=== PATIENT | male | born 1990 | race African-American/Black ===

== ENCOUNTER 2019-01-05 22:25 | Emergency (ER) | payer OTHER | END 2019-01-06 01:54 | disposition home or self-care (01) | LOC: JER 22:25 ==

== ENCOUNTER 2019-03-18 21:04 | Emergency (ER) | payer OTHER ==
[2019-03-18 21:38] VITALS: BP 132/91; PULSE 68; TEMP 98; BMI 23.0
[2019-03-18] MEDS ORDERED: AZITHROMYCIN 500 MG TABLET PO ONE (22:13)
--- NOTE | 2019-03-18 22:18 | PDOC ---
History of Present Illness - General Chief Complaint: Head/Neck problem Stated Complaint: FEELING SICK Time Seen by Provider: 03/18/19 21:50 History Source: Patient Exam Limitations: Clinical Condition - History of Present Illness Initial Comments: 03/18/19 22:38 Patient with no significant past medical history present with complaint of whole -body itching and tingling sensation after having unprotected sex with a girl 2 days ago. Patient reported he did labs itching all over the body of the time he has sex with this particular girl which resolves after few days. Patient is concerned he might have STD. Denies any penile discharge, pain or any other symptoms Timing/Duration: other (2 days) Past History - Past Medical History Allergies/Adverse Reactions: Allergies Allergy/AdvReac Type Severity Reaction Status Date / Time No Known Allergies Allergy Verified 01/05/19 22:40 Asthma: No Cancer: No Cardiac Disorders: No CVA: No COPD: No CHF: No - Suicide/Smoking/Psychosocial Hx Smoking History: Former smoker Have you smoked in the past 12 months: No Information on smoking cessation initiated: No Hx Alcohol Use: No Drug/Substance Use Hx: No Review of Systems - Review of Systems Able to Perform ROS?: Yes Is the patient limited Syriac proficient: No Constitutional: No: Weakness HEENTM: No: Symptoms Reported Respiratory: No: Symptoms reported Cardiac (ROS): No: Symptoms Reported ABD/GI: No: Symptoms Reported : No: Symptoms Reported Musculoskeletal: No: Symptoms Reported Integumentary: Yes: Symptoms Reported, See HPI, Pruritus Neurological: Yes: Symptoms reported, See HPI, Tingling. No: Numbness, Paresthesia, Dizziness All Other Systems: Reviewed and Negative *Physical Exam - Vital Signs Last Vital Signs Temp Pulse Resp BP Pulse Ox 98 F 68 20 132/91 100 03/18/19 21:33 03/18/19 21:33 03/18/19 21:33 03/18/19 21:33 03/18/19 21:33 - Physical Exam General Appearance: Yes: Nourished, Appropriately Dressed. No: Apparent Distress HEENT: positive: Normal ENT Inspection Neck: positive: Supple Respiratory/Chest: positive: Lungs Clear, Normal Breath Sounds. negative: Respiratory Distress, Accessory Muscle Use Cardiovascular: positive: Regular Rhythm, Regular Rate Male Genitalia: positive: normal genitalia Musculoskeletal: positive: Normal Inspection Extremity: positive: Normal Capillary Refill, Normal Inspection Integumentary: positive: Normal Color Neurologic: positive: Fully Oriented, Alert, Normal Response Medical Decision Making - Medical Decision Making 03/18/19 22:40 Patient with no significant past medical history present with complaint of whole -body itching and tingling sensation after having unprotected sex with a girl 2 days ago. Patient reported he did labs itching all over the body of the time he has sex with this particular girl which resolves after few days. Patient is concerned he might have STD. Denies any penile discharge, pain or any other symptoms Exam unremarkable with no penile discharge pain or rashes. Normal neuro exam. Lungs clear to auscultation bilateral and normal cardio exam. Symptoms likely anxiety from having unprotected sex versus ALLERGIC reaction to the female partner. Urine culture ordered. Urine GC and chlamydia tests ordered. Ceftriaxone 250 mg IM and azithromycin 1 g by mouth given for STI prophylaxis. Patient is stable for discharge with PCP follow-up *DC/Admit/Observation/Transfer Diagnosis at time of Disposition: Malaise, Concern about STD in male without diagnosis - Discharge Dispostion Disposition: HOME Condition at time of disposition: Stable Decision to Admit order: No - Referrals - Patient Instructions Printed Discharge Instructions: How to Detect and Treat STDs Additional Instructions: You will be contacted with urine lab results if it positive for bacteria - Post Discharge Activity
[2019-03-18] MEDS ORDERED: AZITHROMYCIN 250 MG TABLET ONE (22:26)
== END 2019-03-18 22:40 | disposition home or self-care (01) ==
LOC: JERFT 21:04
DX: R53.81 Other malaise (principal); Z11.3 Encounter for screening for infections with a predominantly sexual mode of transmission; Z87.891 Personal history of nicotine dependence
CPT/HCPCS: 36415; 87086; 87491; 87591; 99281-25

== ENCOUNTER 2019-04-28 10:23 | Emergency (ER) | payer OTHER ==
[2019-04-28 10:29] VITALS: BP 121/63; PULSE 70; TEMP 98.5; BMI 23.7
--- NOTE | 2019-04-28 10:49 | PDOC ---
History of Present Illness - General Chief Complaint: Lightheaded Stated Complaint: UNBALANCED Time Seen by Provider: 04/28/19 10:45 History Source: Patient Exam Limitations: No Limitations - History of Present Illness Initial Comments: 28 year old male with no PMH presented to ED for STI testing/treatment. Pt reported x1.5 weeks ago he had unprotected sex with a partner he has had sex with in the past, and he is worried he may have an STD because since then he has been feeling generalized weakness/all over body shakes. Pt reported the last time he had sex with her he had similar symptoms, and he was seen at [facility] ED. Pt denied penile pain, penile discharge, testicular pain, abdominal pain, nausea, vomiting, fever. ROS General: admitted to generalized weakness. denied fever, chills. HEENT: denied sore throat, rhinorrhea, ear pain. Cardiovascular: denied chest pain, palpitations, syncope, diaphoresis. Respiratory: denied shortness of breath, cough, sputum production, hemoptysis. Gastrointestinal: denied abdominal pain, nausea, vomiting, diarrhea, constipation, blood in stool. Genitourinary: denied penile pain, penile discharge, testiculr pain, dysuria, increased urinary frequency, hematuria, urinary incontinence, flank pain. Back: denied back pain. Musculoskeletal: denied joint pain, muscle pain, joint swelling. Neurological: admitted to shaking. denied headache, dizziness, numbness, tingling, weakness. Integumentary: denied rash, laceration, abrasion. Hematologic/Lymphatic: denied bruising or bleeding. PE Constitutional: Well-nourished, Well-developed, appearing stated age. HEENT: head is normocephalic, atraumatic. EOMI. PERRLA. no posterior pharyngeal erythema.no tonsillar swelling or exudates bilaterally. uvula midline. no peritonsillar swelling, tenderness or abscess. no jaw tenderness or misalignment. Neck: supple. Full ROM. Cardiovascular: regular heart rhythm. no murmurs. no pericardial friction rub. Respiratory: clear to auscultation bilaterally. no crackles, rhonchi or wheezing. no stridor. Gastrointestinal: soft, nontender. normal bowel sounds. no rebound, guarding, masses. Extremities: peripheral pulses intact. no lower extremity edema. Neurological: CN 2-12 grossly intact. moves all four extremities. no tremor noted. Psych: awake, alert, oriented x3. follows commands. answers questions appropriately. Past History - Past Medical History Allergies/Adverse Reactions: Allergies Allergy/AdvReac Type Severity Reaction Status Date / Time No Known Allergies Allergy Verified 04/28/19 10:29 Home Medications: Ambulatory Orders NK [No Known Home Medication] 04/28/19 Asthma: No Cancer: No Cardiac Disorders: No CVA: No COPD: No CHF: No - Suicide/Smoking/Psychosocial Hx Smoking History: Never smoked Have you smoked in the past 12 months: No Hx Alcohol Use: No Drug/Substance Use Hx: No *Physical Exam - Vital Signs Last Vital Signs Temp Pulse Resp BP Pulse Ox 98.5 F 70 14 121/63 99 04/28/19 10:26 04/28/19 10:04/28/19 10:04/28/19 10:04/28/19 10:26 Medical Decision Making - Medical Decision Making 28 year old male with above PMH presented to ED for STI testing/treatment, c/o all over body shakes and weakness. Pt refused HIV/Hepatitis/Syphilis testing. Initial Vital Signs Temp Pulse Resp BP Pulse Ox 98.5 F 70 14 121/63 99 04/28/19 10:26 04/28/19 10:04/28/19 10:04/28/19 10:04/28/19 10:26 Afebrile. No tachycardia. No tachypnea. No hypotension. No hypoxia on room air. Labs ordered: GC/Chalmydia amplification Medications ordered: Azithromycin 1000 mg PO once, Ceftriaxone 250 mg IM once Imaging ordered: none Active Orders 24 hr Category Date Time Status CHLAMYDIA/GC AMPLIFICATION Stat Lab 04/28/19 11:00 Received Pt counseled on safe sex practices, expectant management, advised to be abstinent x7 days after Abx treatment, advised to have partner(s) medically evaluated. 04/28/19 12:13 Pt unable to be found in department. Pt awaiting Attending physician evaluation. 04/28/19 12:23 Pt found to be sitting outside. Attending now evaluating pt. 04/28/19 12:25 Pt stable for discharge. *DC/Admit/Observation/Transfer Diagnosis at time of Disposition: Concern about STD in male without diagnosis - Discharge Dispostion Disposition: HOME Condition at time of disposition: Stable Decision to Admit order: No - Referrals Referrals: Michael Mejía MD [Staff Physician] - Oh Snow MD [Staff Physician] - - Patient Instructions Printed Discharge Instructions: How to Use a Condom, Facts About Sexually Transmitted Infections Additional Instructions: Follow up with your primary care doctor within 3 days. Your care is not complete until you follow up. I have provided you with a referral for our clinic system. DO NOT HAVE SEX for 7 days after your treatment. Please have your sexual partners medically evaluated and treated. Do not have sex with any partners who have not been treated. Return to the Emergency Department for increasing pain, chest pain, shortness of breath, vomiting, fever>103F, fever>5 days, discharge from penis, penile pain , testicular pain, or any other new, worsening or concerning symptoms. - Post Discharge Activity Forms/Work/School Notes: Back to Work
[2019-04-28] MEDS ORDERED: AZITHROMYCIN 500 MG TABLET PO ONE (10:57)
[2019-04-28] MEDS ORDERED: AZITHROMYCIN 250 MG TABLET ONE (11:10)
[2019-04-28] MEDS ORDERED: cefTRIAXone SODIUM 1 GM VIAL ONE (11:10)
[2019-04-28] MEDS ORDERED: LIDOCAINE HCL 1%, 10 MG/ML (20ML VIAL) ONE (11:10)
--- NOTE | 2019-04-28 12:47 | PDOC ---
Attending Attestation - Resident Resident Name: Yaakov Wynnea - ED Attending Attestation I have performed the following: I have examined & evaluated the patient, The case was reviewed & discussed with the resident, I agree w/resident's findings & plan, Exceptions are as noted - HPI HPI: 04/28/19 12:45 28 yo M here with concerns for STD. pt states he has a sexual partner that he is concerned gave him an STD. denies dysuria, no f/c no weight loss. no penile discharge. no abd or flank pain. c/o generalized weakness and shaking. he has been seen for STD check for same in the past. no cp no sob no other complaints. - Physicial Exam PE: 04/28/19 12:46 awake alert lungs clear bilat heart rrr no mrg abd soft nt nd ext wwp. flank nt from. ext wwp no edema.skin warm and dry no rash. - Medical Decision Making 04/28/19 12:[age] yo male here for std check. will offer phrophylactic treatment. cultures sent. dc home. janneth rivera given to pt.
== END 2019-04-28 12:35 | disposition home or self-care (01) ==
LOC: JER 10:23
DX: Z11.3 Encounter for screening for infections with a predominantly sexual mode of transmission (principal)
CPT/HCPCS: 36415; 87491; 87591; 96372; 99282-25

== ENCOUNTER 2019-05-06 08:13 | Emergency (ER) | payer OTHER ==
[2019-05-06 08:31] VITALS: BP 144/88; PULSE 63; TEMP 98.2; BMI 23.0
--- NOTE | 2019-05-06 09:00 | PDOC ---
History of Present Illness - General Chief Complaint: Penile Drainage Stated Complaint: PERSONAL Time Seen by Provider: 05/06/19 08:38 History Source: Patient Exam Limitations: No Limitations Past History - Travel Traveled outside of the country in the last 30 days: No Close contact w/someone who was outside of country & ill: No - Past Medical History Allergies/Adverse Reactions: Allergies Allergy/AdvReac Type Severity Reaction Status Date / Time No Known Allergies Allergy Verified 05/06/19 08:31 Home Medications: Ambulatory Orders NK [No Known Home Medication] 04/28/19 Asthma: No Cancer: No Cardiac Disorders: No CVA: No COPD: No CHF: No - Psycho Social/Smoking Cessation Hx Smoking History: Never smoked Have you smoked in the past 12 months: No Hx Alcohol Use: No Drug/Substance Use Hx: No Review of Systems - Review of Systems Able to Perform ROS?: Yes Comments:: 05/06/19 08:49 CONSTITUTIONAL: Absent: fever, chills, diaphoresis, generalized weakness, malaise, loss of appetite HEENT: Absent: rhinorrhea, nasal congestion, throat pain, throat swelling, difficulty swallowing, mouth swelling, ear pain, eye pain, visual Changes CARDIOVASCULAR: Absent: chest pain, loss of consciousness, palpitations, irregular heart rate, peripheral edema RESPIRATORY: Absent: cough, shortness of breath, dyspnea with exertion, orthopnea, wheezing, stridor, hemoptysis GASTROINTESTINAL: Absent: abdominal pain, abdominal distension, nausea, vomiting, diarrhea, constipation, melena, hematochezia GENITOURINARY: Present: tingling to tip of penis Absent: dysuria, frequency, urgency, hesitancy , hematuria, flank pain, genital pain MUSCULOSKELETAL: Absent: myalgia, arthralgia, joint swelling SKIN: Absent: rash, itching, pallor HEMATOLOGIC/IMMUNOLOGIC: Absent: easy bleeding, easy bruising, lymphadenopathy, frequent infections ENDOCRINE: Absent: unexplained weight gain, unexplained weight loss, heat intolerance, cold intolerance NEUROLOGIC: Absent: headache, focal weakness or paresthesias, dizziness, unsteady gait, seizure, mental status changes, bladder or bowel incontinence PSYCHIATRIC: Absent: anxiety, depression, suicidal or homicidal ideation, hallucinations. Is the patient limited Tajik proficient: No *Physical Exam - Vital Signs Last Vital Signs Temp Pulse Resp BP Pulse Ox 98.2 F 63 18 144/88 99 05/06/19 08:27 05/06/19 08:27 05/06/19 08:27 05/06/19 08:27 05/06/19 08:27 - Physical Exam Comments: 05/06/19 09:00 GENERAL: The patient is awake, alert, and fully oriented, in no acute distress. HEAD: Normal with no signs of trauma. EYES: Pupils equal, round and reactive to light, extraocular movements intact, sclera anicteric, conjunctiva clear. EXTREMITIES: Normal range of motion, no edema. NEUROLOGICAL: Normal speech, normal gait. PSYCH: Normal mood, normal affect. SKIN: Warm, Dry, normal turgor, no rashes or lesions noted. Medical Decision Making - Medical Decision Making 05/06/19 09:00 The patient is a 28 y/o M with no PMH who presents to the ER today with tingling to the tip of his penis for 5-6 days. He states that he had protected sex with a new partner one week ago, but he is unsure if he got fluids on the area as he was taking the condom off. Denies fevers, chills, rashes, dysuria, hematuria, penile drainage, and testicular pain. A/P: Penile tingling Pt defers penile exam at this time. Will test for STD's, but pt requesting prophylaxis at this time UA negative for infection; culture sent Give Azithromycin and Ceftriaxone Defers HIV testing. States he will get it done at his primary care doctors office [place] home I discussed the physical exam findings, ancillary test results and final diagnoses with the patient. I answered all of the patient's questions. The patient was satisfied with the care received and felt comfortable with the discharge plan and treatment plan. The Patient agrees to follow up with the primary care physician/specialist within 24-72 hours. Return precautions were given. Discharge - Discharge Information Problems reviewed: Yes Clinical Impression/Diagnosis: Concern about STD in male without diagnosis Condition: Stable Disposition: HOME - Admission No - Follow up/Referral Referrals: Michael Mejía MD [Staff Physician] - - Patient Discharge Instructions Patient Printed Discharge Instructions: Facts About Sexually Transmitted Infections Additional Instructions: You were treated prophylactically for STD's today. Avoid unprotected sex. Call in 3-4 days for your results. Follow up with your primary care doctor this week. If you do not have one, a referral is listed below. Return to the ER for any new or worsening symptoms - Post Discharge Activity
[2019-05-06] MEDS ORDERED: AZITHROMYCIN 500 MG TABLET PO ONE (09:05)
[2019-05-06] MEDS ORDERED: LIDOCAINE HCL 1%, 10 MG/ML (20ML VIAL) ONE (09:23)
[2019-05-06] MEDS ORDERED: AZITHROMYCIN 250 MG TABLET ONE (09:23)
[2019-05-06 09:46] LABS: PH,URINE 5.5 (5.0-8.0); URINE APPEARANCE CLEAR; URINE BILIRUBIN NEGATIVE (NEGATIVE); URINE COLOR YELLOW; URINE GLUCOSE (UA) NEGATIVE (NEGATIVE); URINE KETONE NEGATIVE (NEGATIVE); URINE LEUK ESTERASE NEGATIVE (NEGATIVE); URINE NITRITE NEGATIVE (NEGATIVE); URINE PROTEIN NEGATIVE (NEGATIVE); URINE UROBILINOGEN 0.2 mg/dL (0.2-1.0)
== END 2019-05-06 09:55 | disposition home or self-care (01) ==
LOC: JERFT 08:13
DX: Z71.1 Person with feared health complaint in whom no diagnosis is made (principal); R36.9 Urethral discharge, unspecified
CPT/HCPCS: 36415; 81003; 86593; 87086; 87491; 87591; 96372; 99282-25

== ENCOUNTER 2019-05-09 16:17 | Emergency (ER) | payer OTHER ==
--- NOTE | 2019-05-09 16:19 | PDOC ---
Rapid Medical Evaluation Time Seen by Provider: 05/09/19 16:19 Medical Evaluation: Allergies Allergy/AdvReac Type Severity Reaction Status Date / Time No Known Allergies Allergy Verified 05/06/19 08:31 05/09/19 16:19 CC: body aches for 1 week PE: no focal findings. Orders: toradol Patient will proceed to ER for further evaluation. 05/09/19 16:20 Discharge Disposition - Diagnosis Malaise - Referrals - Patient Instructions - Post Discharge Activity
[2019-05-09 16:21] VITALS: BP 125/77; PULSE 81; TEMP 99; BMI 23.7
[2019-05-09] MEDS ORDERED: KETOROLAC TROMETHAMINE 60 MG/2 ML VIAL IM ONE (16:21)
[2019-05-09] MEDS ORDERED: KETOROLAC TROMETHAMINE 60 MG/2 ML VIAL ONE (16:35)
--- NOTE | 2019-05-09 16:39 | PDOC ---
History of Present Illness - General Chief Complaint: Pain Stated Complaint: FOLLOW UP Time Seen by Provider: 05/09/19 16:19 - History of Present Illness Initial Comments: 05/09/19 16:38 28-year-old male without comorbidities recently treated for STDs presents for evaluation of 8 days of muscle soreness no systemic symptoms no urinary symptoms. Past History - Past Medical History Allergies/Adverse Reactions: Allergies Allergy/AdvReac Type Severity Reaction Status Date / Time No Known Allergies Allergy Verified 05/09/19 16:21 Home Medications: Ambulatory Orders NK [No Known Home Medication] 04/28/19 Asthma: No Cancer: No Cardiac Disorders: No CVA: No COPD: No CHF: No - Psycho Social/Smoking Cessation Hx Smoking History: Never smoked Have you smoked in the past 12 months: No Information on smoking cessation initiated: No Hx Alcohol Use: No Drug/Substance Use Hx: No Review of Systems - Review of Systems Musculoskeletal: Yes: Muscle Pain *Physical Exam - Vital Signs Last Vital Signs Temp Pulse Resp BP Pulse Ox 99 F 81 18 125/77 99 05/09/19 16:20 05/09/19 16:20 05/09/19 16:20 05/09/19 16:20 05/09/19 16:20 - Physical Exam Comments: 05/09/19 16:38 HEAD: NC/AT EYES: Conjuntiva clear Ears: Canals and TM's normal NOSE: No d/c THROAT: Moist mucous membrances, oral pharanx clear, uvula midline NECK: Supple without adenopathy CARDIAC: S1 S2 LUNGS: CTA Full and Equal breath sounds ABDOMEN: Soft NT ND MS: Full ROM in all joints without edema NEUROLOGIC: No gross sensory or motor deficits, NVID SKIN: Normal color and temperature no lesions or rashes ED Treatment Course - LABORATORY CBC & Chemistry Diagram: 05/09/19 16:35 05/09/19 16:35 Medical Decision Making - Medical Decision Making 05/09/19 16:38 We will do CPK and CBC as well as a UA and go from there. Discharge - Discharge Information Problems reviewed: Yes Clinical Impression/Diagnosis: Malaise Condition: Stable Disposition: ELOPED - Follow up/Referral - Patient Discharge Instructions - Post Discharge Activity
[2019-05-09 17:11] LABS: BASO % 0.7 % (0-2.0); EOS % 1.6 % (0-4.5); HEMATOCRIT 43.8 % (35.4-49); HEMOGLOBIN 14.7 GM/dL (11.7-16.9); LYMPH % 30.2 % (8-40); MCH 30.1 pg (25.7-33.7); MCHC 33.5 g/dl (32.0-35.9); MEAN PLT VOLUME 8.5 fl (7.5-11.1); MONO % 7.6 % (3.8-10.2); NEUT % 59.9 % (42.8-82.8); PLATELET COUNT 245 K/MM3 (134-434); RBC 4.86 M/mm3 (4.00-5.60); RDW 13.3 % (11.9-15.9); URINE APPEARANCE CLEAR; URINE BILIRUBIN NEGATIVE (NEGATIVE); URINE COLOR YELLOW; URINE GLUCOSE (UA) NEGATIVE (NEGATIVE); URINE KETONE NEGATIVE (NEGATIVE); URINE LEUK ESTERASE NEGATIVE (NEGATIVE); URINE NITRITE NEGATIVE (NEGATIVE); URINE PROTEIN NEGATIVE (NEGATIVE); URINE UROBILINOGEN 0.2 mg/dL (0.2-1.0); WHITE BLOOD COUNT 5.8 K/mm3 (4.0-10.0)
[2019-05-09 17:34] LABS: ALBUMIN 4.2 g/dl (3.4-5.0); BILIRUBIN,TOTAL 0.6 mg/dL (0.2-1); BLOOD UREA NITROGEN 9.3 mg/dL (7-18); CALCIUM 8.9 mg/dL (8.5-10.1); CREATININE 0.9 mg/dL (0.55-1.3); POTASSIUM 3.4 mmol/L (3.5-5.1); TOT PROT 7.6 g/dl (6.4-8.2)
== END 2019-05-09 17:30 | disposition left against medical advice (07) ==
LOC: JERFT 16:17
DX: M79.10 Myalgia, unspecified site (principal)
CPT/HCPCS: 36415; 80053; 81003; 82550; 82553; 85025; 99282-25

== ENCOUNTER 2020-03-11 22:34 | Emergency (ER) | payer OTHER ==
[2020-03-11 22:39] VITALS: BP 130/85; PULSE 85; TEMP 97.8; BMI 25.7
--- NOTE | 2020-03-11 22:46 | PDOC ---
*Physical Exam - Vital Signs Last Vital Signs Temp Pulse Resp BP Pulse Ox 97.8 F 85 20 130/85 100 03/11/20 22:36 03/11/20 22:36 03/11/20 22:36 03/11/20 22:36 03/11/20 22:36 Medical Decision Making - Medical Decision Making 03/11/20 22:46 Patient seen by the advanced practice provider under my supervision. Ancillary testing reviewed as necessary. I agree with plan as outlined by the advanced practice provider. Discharge - Discharge Information Problems reviewed: Yes Clinical Impression/Diagnosis: Penile discharge - Follow up/Referral - Patient Discharge Instructions - Post Discharge Activity
--- NOTE | 2020-03-11 22:48 | PDOC ---
Rapid Medical Evaluation Chief Complaint: Itching Time Seen by Provider: 03/11/20 22:44 Medical Evaluation: Allergies Allergy/AdvReac Type Severity Reaction Status Date / Time ceftriaxone [From Rocephin] Allergy Verified 10/23/19 12:52 Vital Signs Temp Pulse Resp BP Pulse Ox 97.8 F 85 20 130/85 100 03/11/20 22:36 03/11/20 22:36 03/11/20 22:36 03/11/20 22:36 03/11/20 22:36 03/11/20 22:45 29 year old male c/o penile itching, discharge, burning on urination. A; penile discharge P: ua/ ucx GC amplification Discharge Disposition - Diagnosis Penile discharge - Referrals - Patient Instructions - Post Discharge Activity
--- NOTE | 2020-03-11 22:49 | PDOC ---
History of Present Illness - General Chief Complaint: Itching Stated Complaint: GENITAL PAIN Time Seen by Provider: 03/11/20 22:44 - History of Present Illness Initial Comments: 03/12/20 00:01 29-year-old male reports dysuria, penile pain and itchiness to the tip of the penis for the last 3 days. Patient reports that he had unprotected sex a week and a half ago with a new partner unsure of STD exposure. Denies testicular emerson n, abdominal pain, flank pain, nausea vomiting diarrhea, fever/chills. Patient does not have any penile lesions Past History - Medical History Allergies/Adverse Reactions: Allergies Allergy/AdvReac Type Severity Reaction Status Date / Time ceftriaxone [From Rocephin] Allergy Verified 10/23/19 12:52 Home Medications: Ambulatory Orders Gemifloxacin Mesylate [Factive] 320 mg PO ONCE #1 tablet 03/12/20 Asthma: No Cancer: No Cardiac Disorders: Yes CVA: No COPD: No CHF: No - Psycho-Social/Smoking History Smoking History: Never smoked Have you smoked in the past 12 months: No - Substance Abuse Hx (Audit-C & DAST Scrn) How often the patient has a drink containing alcohol: Never Score: In Men: 4 or > Positive; In Women: 3 or > Positive: 0 Screen Result (Pos requires Nsg. Audit-10AR): Negative Review of Systems - Review of Systems Able to Perform ROS?: Yes Is the patient limited Citizen [place] proficient: No Constitutional: No: Symptoms Reported, See HPI, Chills, Diaphoresis, Fever, Loss of Appetite, Malaise, Night Sweats, Weakness, Weight Stable, Unintentional Wgt. Loss, Unexplained wgt Loss, Other *Physical Exam - Vital Signs Last Vital Signs Temp Pulse Resp BP Pulse Ox 97.8 F 85 20 130/85 100 03/11/20 22:36 03/11/20 22:36 03/11/20 22:36 03/11/20 22:36 03/11/20 22:36 - Physical Exam General Appearance: Yes: Appropriately Dressed Gastrointestinal/Abdominal: positive: Soft. negative: Tender Male Genitalia: positive: normal genitalia, other (no penile discharge, no lesions). negative: testicular tenderness Integumentary: positive: Normal Color, Dry, Warm Neurologic: positive: Fully Oriented, Alert, Normal Mood/Affect Medical Decision Making - Medical Decision Making 03/12/20 00:06 A: STD exposure possible. Penile pain P: GC chlamydia pending UA negative urine culture pending 03/12/20 00:30 Patient has allergy to ceftriaxone. Patient reports generalized rash that was pretty severe as per patient. Will give gentamicin to cover gonorrhea. As per alternative recommended treatment by up-to-date 03/12/20 00:31 03/12/20 00:45 patient refused gentamicin. gemifloxacin prescribed. Advise patient that prescription may require a large co-pay. Patient reports that he is willing to pay ayala for it Discharge - Discharge Information Problems reviewed: Yes Clinical Impression/Diagnosis: Penile discharge, STD (male) Disposition: HOME - Additional Discharge Information Prescriptions: Gemifloxacin Mesylate [Factive] 320 mg PO ONCE #1 tablet - Follow up/Referral - Patient Discharge Instructions Patient Printed Discharge Instructions: Facts About Sexually Transmitted Infections Additional Instructions: Use protection. no sex for one week your partner/s should also need to be treated. we will call you if your test result is positive. you were treated for presumptive Gonorrhea or chlamydia return to the ER for any worsening symptoms. - Post Discharge Activity Work/Back to School Note: Back to Work
[2020-03-11 23:24] LABS: PH,URINE 5.5 (5.0-8.0); URINE APPEARANCE CLEAR; URINE BILIRUBIN NEGATIVE (NEGATIVE); URINE COLOR YELLOW; URINE GLUCOSE (UA) NEGATIVE (NEGATIVE); URINE KETONE TRACE (NEGATIVE); URINE LEUK ESTERASE NEGATIVE (NEGATIVE); URINE NITRITE NEGATIVE (NEGATIVE); URINE PROTEIN TRACE (NEGATIVE)
[2020-03-11] MEDS ORDERED: GENTAMICIN SO4 *PEDIATRIC* 20 MG/2 ML VIAL IM ONE (23:59)
[2020-03-12] MEDS ORDERED: AZITHROMYCIN 500 MG TABLET PO ONE (00:01)
[2020-03-12] MEDS ORDERED: AZITHROMYCIN 500 MG TABLET ONE (00:30)
[2020-03-12] MEDS ORDERED: GENTAMICIN SO4 80 MG/2 ML VIAL ONE (00:31)
== END 2020-03-12 00:54 | disposition home or self-care (01) ==
LOC: JER 22:34
DX: R36.9 Urethral discharge, unspecified (principal)
CPT/HCPCS: 36415; 81003; 87086; 87491; 87591; 99284-25